=== PATIENT | male | born 1990 | race Caucasian/White ===

== ENCOUNTER 2023-06-02 07:17 | Emergency (ER) | payer SELFPAY ==
[~2023-06-02] VITALS: Ht 167.6 cm; Wt 88.0 kg
[2023-06-02 07:27] VITALS: BP 112/86; PULSE 117; RESP 22; TEMP 101.4; O2SAT 95
[2023-06-02] MEDS ORDERED: ACETAMINOPHEN EXTRA STRENGTH 500 MG TAB PO ONE (07:45)
[2023-06-02] MEDS ORDERED: KETOROLAC 30 MG/ML VIAL IM ONE (07:45)
[2023-06-02 08:44] LABS: FLU A ANTIGEN negative (NEGATIVE); FLU B ANTIGEN negative (NEGATIVE)
[2023-06-02] MEDS ORDERED: IBUP-2213 PO (09:13)
[2023-06-02 09:53] VITALS: BP 110/74; PULSE 100; RESP 18; TEMP 98.7; O2SAT 98
== END 2023-06-02 09:45 | disposition home or self-care (01) ==
LOC: MED 07:17
DX: B34.9 Viral infection, unspecified (principal); J06.9 Acute upper respiratory infection, unspecified; Z20.822 Contact with and (suspected) exposure to COVID-19; Z79.1 Long term (current) use of non-steroidal anti-inflammatories (NSAID)
CPT/HCPCS: 71045; 87426; 87804; 93005; 96372; 99285; J1885